=== PATIENT | female | born 1990 | race African-American/Black ===

== ENCOUNTER 2018-09-08 17:14 | Emergency (ER) | payer BC ==
[2018-09-08] MEDS ORDERED: KETOROLAC 30 MG/ML INJ ONE (21:03)
--- NOTE | 2018-09-08 22:17 | ER ---
Nurse's Notes [facility] Name: Brendan Alcala Age: 27 yrs Sex: Female : 1990 Arrival Date: 09/08/2018 Time: 17:33 Bed 7 Private MD: Diagnosis: Acute pharyngitis Presentation: 09/08 17:38 Presenting complaint: Patient states: painful cough and sore throat that began today. ss Transition of care: patient was not received from another setting of care. Onset of symptoms was September 08, 2018. Risk Assessment: Do you want to hurt yourself or someone else? Patient reports no desire to harm self or others. Initial Sepsis Screen: Does the patient meet any 2 criteria? No. Patient's initial sepsis screen is negative. Does the patient have a suspected source of infection? No. Patient's initial sepsis screen is negative. Care prior to arrival: None. 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 - Social history:: Smoking status: Patient uses tobacco products, smokes one-half pack cigarettes per day. - Ebola Screening: : Patient denies exposure to infectious person Patient denies travel to an Ebola-affected area in the 21 days before illness onset. Screenin:36 Abuse screen: Denies threats or abuse. Denies injuries from another. Nutritional ak1 screening: No deficits noted. Tuberculosis screening: No symptoms or risk factors identified. Fall Risk None identified. Assessment: 20:34 General: Appears in no apparent distress. Behavior is calm, cooperative. Pain: ak1 Complains of pain in throat Pain does not radiate. Pain began 1 week ago. Neuro: No deficits noted. Cardiovascular: No deficits noted. Respiratory: Airway is patent Respiratory effort is even, unlabored, Breath sounds are clear bilaterally. GI: No signs and/or symptoms were reported involving the gastrointestinal system. : No signs and/or symptoms were reported regarding the genitourinary system. EENT: Throat is clear. Derm: No signs and/or symptoms reported regarding the dermatologic system. Musculoskeletal: No signs and/or symptoms reported regarding the musculoskeletal system. 20:56 Reassessment: ER UPT negative. ak1 Vital Signs: 17:39 BP 101 / 67; Pulse 75; Resp 14; Temp 98.4(TE); Pulse Ox 100% on R/A; Weight 83.91 kg; ss Height 5 ft. 3 in. (160.02 cm); Pain 7/10; 20:16 BP 99 / 62; Pulse 82; Resp 16; Pulse Ox 100% on R/A; Pain 8/10; mt 20:36 BP 96 / 54; Pulse 66; Resp 18; Temp 98.6; Pulse Ox 100% on R/A; ak1 21:41 BP 90 / 57; Pulse 62; Resp 16; Pulse Ox 100% on R/A; ak1 17:39 Body Mass Index 32.77 (83.91 kg, 160.02 cm) ED Course: 17:33 Patient arrived in ED. mr 17:38 Triage completed. ss 17:39 Arm band placed on right wrist. 20:23 Kinga Hicks RN is Primary Nurse. ak1 20:30 Ingrid Wray FNP-C is PHCP. kb 20:30 Cirilo Kate MD is Attending Physician. kb 20:36 Patient has correct armband on for positive identification. Bed in low position. Call ak1 light in reach. Side rails up X 1. Pulse ox on. NIBP on. 20:36 No provider procedures requiring assistance completed. Patient maintains SpO2 ak1 saturation greater than 95% on room air. 20:49 Flu Sent. tl2 22:23 Patient did not have IV access during this emergency room visit. ak1 Administered Medications: 21:00 Drug: TORadol 60 mg Route: IM; Site: right deltoid; tl2 21:56 Follow up: Response: No adverse reaction ak1 Outcome: 22:16 Discharge ordered by . kb 22:23 Discharged to home ambulatory. ak1 22:23 Condition: good 22:23 Discharge instructions given to patient, Instructed on discharge instructions, follow up and referral plans. Demonstrated understanding of instructions, follow-up care. 22:23 Patient left the ED. ak1 Signatures: Ingrid Wray FNP-C FNP-Isac Zeinab Yee mr Arpita Franklin RN RN Kinga Hicks RN RN ak1 Jacquie Webster RN RN tl2 Delmy Luna mt
--- NOTE | 2018-09-08 22:18 | EDPHYS ---
Physician Documentation [facility] Name: Brendan Alcala Age: 27 yrs Sex: Female : 1990 Arrival Date: 09/08/2018 Time: 17:33 Bed 7 Private MD: ED Physician Cirilo Kate HPI: 09/08 22:17 This 27 yrs old Black Female presents to ER via Ambulatory with complaints of Sore kb Throat, Cough. 22:17 The patient presents with sore throat. The patient describes throat pain as constant. kb Onset: The symptoms/episode began/occurred last week, and became worse today. Severity of symptoms: At their worst the symptoms were moderate, in the emergency department the symptoms are unchanged. Modifying factors: The symptoms are alleviated by nothing, the symptoms are aggravated by swallowing, Patient's oral intake status: good. Associated signs and symptoms: Pertinent positives: chills, cough, fever, flu-like symptoms, Sore throat. The patient has not experienced similar symptoms in the past. The patient has not recently seen a physician. Pt reports flu-like symptoms for a week, sore throat started today. . 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 - Social history:: Smoking status: Patient uses tobacco products, smokes one-half pack cigarettes per day. - Ebola Screening: : Patient denies exposure to infectious person Patient denies travel to an Ebola-affected area in the 21 days before illness onset. ROS: 22:18 Constitutional: Negative for fever, chills, and weight loss, Cardiovascular: Negative kb for chest pain, palpitations, and edema, Abdomen/GI: Negative for abdominal pain, nausea, vomiting, diarrhea, and constipation, : Negative for injury, bleeding, discharge, and swelling, MS/Extremity: Negative for injury and deformity, Skin: Negative for injury, rash, and discoloration, Neuro: Negative for headache, weakness, numbness, tingling, and seizure. 22:18 ENT: Positive for sore throat. 22:18 Respiratory: Positive for cough, Negative for dyspnea on exertion, hemoptysis, orthopnea, pleurisy, shortness of breath, sputum production, wheezing. Exam: 22:19 Constitutional: This is a well developed, well nourished patient who is awake, alert, kb and in no acute distress. Head/Face: Normocephalic, atraumatic. ENT: Nares patent. No nasal discharge, no septal abnormalities noted. Tympanic membranes are normal and external auditory canals are clear. Oropharynx with no redness, swelling, or masses, exudates, or evidence of obstruction, uvula midline. Mucous membranes moist. Neck: Trachea midline, no thyromegaly or masses palpated, and no cervical lymphadenopathy. Supple, full range of motion without nuchal rigidity, or vertebral point tenderness. No Meningismus. Chest/axilla: Normal chest wall appearance and motion. Nontender with no deformity. No lesions are appreciated. Cardiovascular: Regular rate and rhythm with a normal S1 and S2. No gallops, murmurs, or rubs. Normal PMI, no JVD. No pulse deficits. Respiratory: Lungs have equal breath sounds bilaterally, clear to auscultation and percussion. No rales, rhonchi or wheezes noted. No increased work of breathing, no retractions or nasal flaring. Abdomen/GI: Soft, non-tender, with normal bowel sounds. No distension or tympany. No guarding or rebound. No evidence of tenderness throughout. Skin: Warm, dry with normal turgor. Normal color with no rashes, no lesions, and no evidence of cellulitis. MS/ Extremity: Pulses equal, no cyanosis. Neurovascular intact. Full, normal range of motion. Neuro: Awake and alert, GCS 15, oriented to person, place, time, and situation. Cranial nerves II-XII grossly intact. Motor strength 5/5 in all extremities. Sensory grossly intact. Cerebellar exam normal. Normal gait. Vital Signs: 17:39 BP 101 / 67; Pulse 75; Resp 14; Temp 98.4(TE); Pulse Ox 100% on R/A; Weight 83.91 kg; ss Height 5 ft. 3 in. (160.02 cm); Pain 7/10; 20:16 BP 99 / 62; Pulse 82; Resp 16; Pulse Ox 100% on R/A; Pain 8/10; mt 20:36 BP 96 / 54; Pulse 66; Resp 18; Temp 98.6; Pulse Ox 100% on R/A; ak1 21:41 BP 90 / 57; Pulse 62; Resp 16; Pulse Ox 100% on R/A; ak1 17:39 Body Mass Index 32.77 (83.91 kg, 160.02 cm) MDM: 20:30 Patient medically screened. kb 22:18 Data reviewed: vital signs, nurses notes. Data interpreted: Pulse oximetry: on room air kb is 100 %. Interpretation: normal. Counseling: I had a detailed discussion with the patient and/or guardian regarding: the historical points, exam findings, and any diagnostic results supporting the discharge/admit diagnosis, lab results, the need for outpatient follow up, a family practitioner, to return to the emergency department if symptoms worsen or persist or if there are any questions or concerns that arise at home. 09/08 19:15 Order name: Strep; Complete Time: 20:30 ea 09/08 19:46 Order name: Throat Culture [facility] 09/08 20:42 Order name: Flu; Complete Time: 21:35 kb Administered Medications: 21:00 Drug: TORadol 60 mg Route: IM; Site: right deltoid; tl2 21:56 Follow up: Response: No adverse reaction ak1 Disposition: 09/09 10:24 Co-signature as Attending Physician, Cirilo Kate MD I agree with the assessment and wa plan of care. Disposition: 09/08/18 22:16 Discharged to Home. Impression: Acute pharyngitis. - Condition is Stable. - Discharge Instructions: Pharyngitis, [id number], Viral Respiratory Infection, [id number], Sore Throat, [id number]. - Medication Reconciliation Form, Thank You Letter, Antibiotic Education, Prescription Opioid Use form. - Follow up: Emergency Department; When: As needed; Reason: Worsening of condition. Follow up: Private Physician; When: 2 - 3 days; Reason: Recheck today's complaints, Continuance of care, Re-evaluation by your physician. Signatures: Dispatcher [employer] [facility] Ingrid Wray FNP-C FNP-Ckb Smirch, Shelby, RN RN Kinga Hicks RN RN ak1 Jacquie Webster RN RN tl2 Cirilo Kate MD MD wa Corrections: (The following items were deleted from the chart) 09/08 22:23 22:16 09/08/2018 22:16 Discharged to Home. Impression: Acute pharyngitis. Condition is ak1 Stable. Forms are Medication Reconciliation Form, Thank You Letter, Antibiotic Education, Prescription Opioid Use. Follow up: Emergency Department; When: As needed; Reason: Worsening of condition. Follow up: Private Physician; When: 2 - 3 days; Reason: Recheck today's complaints, Continuance of care, Re-evaluation by your physician. kb
[2018-09-08 22:36] VITALS: BP 99/62; O2SAT 100
[2018-09-08 22:37] VITALS: TEMP 98.4
== END 2018-09-08 22:23 | disposition home or self-care (01) ==
LOC: ER 17:14
DX: J02.9 Acute pharyngitis, unspecified (principal); R05 Cough; Z88.8 Allergy status to other drugs, medicaments and biological substances; F17.210 Nicotine dependence, cigarettes, uncomplicated
CPT/HCPCS: 87070; 87081; 87804; 96372; 99284

== ENCOUNTER 2018-11-08 11:54 | Emergency (ER) | payer BC ==
[2018-11-08 13:09] LABS: Absolute Lymphocytes (CBC) 0.6 K/uL (0.7-4.9); Absolute Monocytes 0.5 K/uL (0.1-1.3); Absolute Neutrophil 2.8 K/uL (1.8-8.0); Basophils % 1.1 % (0-1.3); Eosinophils % 6.3 % (0-4.4); Hematocrit 39.6 % (36.0-45.0); Lymphocytes % 14.3 % (15.3-44.8); MPV 8.1 fL (7.6-11.3); Monocytes % 10.9 % (3.3-12.3); RBC Red Blood Cell Count 4.98 M/uL (3.86-4.86)
[2018-11-08 13:11] LABS: Urine Bacteria <20 /HPF (<20)
[2018-11-08 13:12] LABS: Urine Culture Reflex Order NOT NEEDED
[2018-11-08 13:22] LABS: BUN Blood Urea Nitrogen 7 mg/dL (7-18); Bicarbonate 27 mmol/L (21-32); Glucose Level 98 mg/dL (74-106); Potassium 3.5 mmol/L (3.5-5.1); Sodium Level 141 mmol/L (136-145)
--- NOTE | 2018-11-08 13:43 | ER ---
Nurse's Notes [facility] Name: Brendan Alcala Age: 27 yrs Sex: Female : 1990 Arrival Date: 11/08/2018 Time: 11:56 Bed 13 Private MD: Unknown, Unknown Diagnosis: Edema, unspecified;Adverse effect of unspecified systemic antibiotic-Bactrim Presentation: 11/08 11:58 Presenting complaint: Patient states: i was Rx with Bactrim and Clindamycin for in hj grown hair on the pubic area since Saturday and noticed my legs hurt and red and warm to touch; took benadryl but not helping;. Transition of care: patient was not received from another setting of care. Onset: The symptoms/episode began/occurred yesterday. Anaphylaxis evaluation, no signs or symptoms of anaphylaxis were noted. Onset of symptoms was November 08, 2018. Risk Assessment: Do you want to hurt yourself or someone else? Patient reports no desire to harm self or others. Initial Sepsis Screen: Does the patient meet any 2 criteria? No. Patient's initial sepsis screen is negative. Does the patient have a suspected source of infection? No. Patient's initial sepsis screen is negative. Care prior to arrival: None. 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 - Social history:: Smoking status: . - Ebola Screening: : Patient denies travel to an Ebola-affected area in the 21 days before illness onset. Screenin:28 Abuse screen: Denies threats or abuse. Nutritional screening: No deficits noted. tw2 Tuberculosis screening: No symptoms or risk factors identified. Fall Risk None identified. Assessment: 13:02 General: Appears in no apparent distress. Behavior is calm, cooperative, appropriate tw2 for age. Pain: Complains of pain in pelvis. Neuro: Level of Consciousness is awake, alert, obeys commands, Oriented to person, place, time, situation. Cardiovascular: Heart tones S1 S2 Patient's skin is warm and dry. Respiratory: Airway is patent Respiratory effort is even, unlabored, Respiratory pattern is regular, symmetrical, Breath sounds are clear bilaterally. GI: No signs and/or symptoms were reported involving the gastrointestinal system. Abdomen is flat, Bowel sounds present X 4 quads. : No signs and/or symptoms were reported regarding the genitourinary system. EENT: No signs and/or symptoms were reported regarding the EENT system. Derm: Reports abscess in my pubic hairs. Musculoskeletal: Circulation, motion, and sensation intact. Range of motion: intact in all extremities. 13:47 Reassessment: Patient appears in no apparent distress at this time. No changes from tw2 previously documented assessment. Patient and/or family updated on plan of care and expected duration. Pain level reassessed. Patient is alert, oriented x 3, equal unlabored respirations, skin warm/dry/pink. 14:43 Reassessment: Patient appears in no apparent distress at this time. No changes from tw2 previously documented assessment. Patient and/or family updated on plan of care and expected duration. Pain level reassessed. Patient is alert, oriented x 3, equal unlabored respirations, skin warm/dry/pink. 15:09 Reassessment: Patient appears in no apparent distress at this time. Patient and/or tw2 family updated on plan of care and expected duration. Pain level reassessed. Patient is alert, oriented x 3, equal unlabored respirations, skin warm/dry/pink. Patient states feeling better. Patient states symptoms have improved. Vital Signs: 12:01 BP 139 / 69; Pulse 86; Resp 18; Temp 98.7(O); Pulse Ox 100% on R/A; Weight 79.38 kg; hj Height 5 ft. 4 in. (162.56 cm); Pain 7/10; 13:47 BP 101 / 68; Pulse 62; Resp 17; Pulse Ox 100% on R/A; tw2 15:09 BP 101 / 64; Pulse 79; Resp 17; Pulse Ox 99% on R/A; tw2 12:01 Body Mass Index 30.04 (79.38 kg, 162.56 cm) ED Course: 11:56 Patient arrived in ED. ag5 11:57 Unknown, Unknown is Private Physician. ag5 12:01 Triage completed. 12:03 Arm band placed on right wrist. hj 12:10 Adeline Huynh [facility]-C [facility]. snw 12:10 Neymar Enamorado MD is Attending Physician. snw 12:14 Dea Her, RN is Primary Nurse. tw2 12:30 Placed in gown. Bed in low position. Call light in reach. tw2 12:50 Inserted saline lock: 22 gauge in right antecubital area, using aseptic technique. tw2 Blood collected. 13:02 Urine For Protein, Random Sent. tw2 13:55 Awaiting: Completion of IV fluids PRIOR to discharge. tw2 15:10 No provider procedures requiring assistance completed. Patient did not have IV access tw2 during this emergency room visit. Administered Medications: 13:54 Drug: NS 0.9% 1000 ml Route: IV; Rate: 1 bolus; Site: right antecubital; tw2 15:09 Follow up: Response: No adverse reaction; IV Status: Completed infusion; IV Intake: tw2 1000ml 13:54 Drug: TORadol 30 mg Route: IVP; Site: right antecubital; tw2 15:09 Follow up: Response: No adverse reaction; Pain is decreased tw2 Intake: 15:09 IV: 1000ml; Total: 1000ml. tw2 Outcome: 13:42 Discharge ordered by . snw 15:10 Discharged to home ambulatory. tw2 15:10 Condition: stable 15:10 Discharge instructions given to patient, Instructed on discharge instructions, follow up and referral plans. medication usage, Demonstrated understanding of instructions, follow-up care, medications, Prescriptions given X 1. 15:10 Patient left the ED. tw2 Signatures: Adeline Huynh FNP-C SURGERY AIDE-Csnw Anderson Neville, RN RN Dea Her, RN RN tw2 Roland Garcia ag5 Corrections: (The following items were deleted from the chart) 12:03 12:01 Pulse 86bpm; Resp 18bpm; Pulse Ox 100% RA; Temp 98.7F Oral; 79.38 kg; Height 5 hj ft. 4 in.; BMI: 30.0; Pain 7/10; hj
--- NOTE | 2018-11-08 13:43 | EDPHYS ---
Physician Documentation [facility] Name: Brendan Alcala Age: 27 yrs Sex: Female : 1990 Arrival Date: 11/08/2018 Time: 11:56 Bed 13 Private MD: Unknown, Unknown ED Physician Neymar Enamorado HPI: 11/08 13:08 This 27 yrs old Black Female presents to ER via Ambulatory with complaints of Allergic snw Reaction. 13:08 The patient presents with swelling and some redness to bilateral lower extremities. snw Onset: The symptoms/episode began/occurred suddenly, 2 day(s) ago, and became persistent today. Associated signs and symptoms: Pertinent positives: swelling. Possible causes: antibiotics, Bactrim. At home the patient or guardian has treated the symptoms with Benadryl. Severity of symptoms: At their worst the symptoms were moderate. The patient has not experienced similar symptoms in the past. 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 - Social history:: Smoking status: . - Ebola Screening: : Patient denies travel to an Ebola-affected area in the 21 days before illness onset. ROS: 13:07 Constitutional: Negative for fever, chills, and weight loss, Eyes: Negative for injury, snw pain, redness, and discharge, ENT: Negative for injury, pain, and discharge, Neck: Negative for injury, pain, and swelling, Cardiovascular: Negative for chest pain, palpitations, and edema, Respiratory: Negative for shortness of breath, cough, wheezing, and pleuritic chest pain, Abdomen/GI: Negative for abdominal pain, nausea, vomiting, diarrhea, and constipation, Back: Negative for injury and pain, : Negative for injury, bleeding, discharge, and swelling, Skin: Negative for injury, rash, and discoloration, Neuro: Negative for headache, weakness, numbness, tingling, and seizure. 13:07 MS/extremity: Positive for pain, swelling, tenderness, of the right leg and left leg. Exam: 13:07 Constitutional: This is a well developed, well nourished patient who is awake, alert, snw and in no acute distress. Head/Face: Normocephalic, atraumatic. Eyes: Pupils equal round and reactive to light, extra-ocular motions intact. Lids and lashes normal. Conjunctiva and sclera are non-icteric and not injected. Cornea within normal limits. Periorbital areas with no swelling, redness, or edema. ENT: Nares patent. No nasal discharge, no septal abnormalities noted. Tympanic membranes are normal and external auditory canals are clear. Oropharynx with no redness, swelling, or masses, exudates, or evidence of obstruction, uvula midline. Mucous membranes moist. Neck: Trachea midline, no thyromegaly or masses palpated, and no cervical lymphadenopathy. Supple, full range of motion without nuchal rigidity, or vertebral point tenderness. No Meningismus. Chest/axilla: Normal chest wall appearance and motion. Nontender with no deformity. No lesions are appreciated. Cardiovascular: Regular rate and rhythm with a normal S1 and S2. No gallops, murmurs, or rubs. Normal PMI, no JVD. No pulse deficits. Respiratory: Lungs have equal breath sounds bilaterally, clear to auscultation and percussion. No rales, rhonchi or wheezes noted. No increased work of breathing, no retractions or nasal flaring. Abdomen/GI: Soft, non-tender, with normal bowel sounds. No distension or tympany. No guarding or rebound. No evidence of tenderness throughout. Back: No spinal tenderness. No costovertebral tenderness. Full range of motion. Neuro: Awake and alert, GCS 15, oriented to person, place, time, and situation. Cranial nerves II-XII grossly intact. Motor strength 5/5 in all extremities. Sensory grossly intact. Cerebellar exam normal. Normal gait. Psych: Awake, alert, with orientation to person, place and time. Behavior, mood, and affect are within normal limits. 13:07 Skin: Appearance: normal except for affected area, swelling, that are moderate, tender, edematous lower extremities with mild erythema. Vital Signs: 12:01 BP 139 / 69; Pulse 86; Resp 18; Temp 98.7(O); Pulse Ox 100% on R/A; Weight 79.38 kg; hj Height 5 ft. 4 in. (162.56 cm); Pain 7/10; 13:47 BP 101 / 68; Pulse 62; Resp 17; Pulse Ox 100% on R/A; tw2 15:09 BP 101 / 64; Pulse 79; Resp 17; Pulse Ox 99% on R/A; tw2 12:01 Body Mass Index 30.04 (79.38 kg, 162.56 cm) hj MDM: 12:18 Patient medically screened. snw 13:40 Data reviewed: vital signs, nurses notes. Data interpreted: Pulse oximetry: on room air snw is 100 %. Interpretation: normal. Counseling: I had a detailed discussion with the patient and/or guardian regarding: the historical points, exam findings, and any diagnostic results supporting the discharge/admit diagnosis, the presence of at least one elevated blood pressure reading (>120/80) during this emergency department visit, lab results, the need for outpatient follow up, to return to the emergency department if symptoms worsen or persist or if there are any questions or concerns that arise at home. Special discussion: I have referred the patient to see his PCP for further evaluation of high blood pressure. Based on the history and exam findings, there is no indication for further emergent testing or inpatient evaluation. I discussed with the patient/guardian the need to see the primary care provider for further evaluation of the symptoms. 11/08 12:34 Order name: CBC with Diff [facility] 11/08 12:34 Order name: Chem 7 w 11/08 12:34 Order name: ESR [facility] 11/08 12:34 Order name: Urine Culture [facility] 11/08 12:34 Order name: Urine Microscopic Only; Complete Time: 13:14 [facility] 11/08 12:35 Order name: CBC with Automated Diff; Complete Time: 13:48 EDIN 11/08 12:34 Order name: Urine Test (obtain specimen); Complete Time: 13:01 snw 11/08 12:35 Order name: Basic Metabolic Panel; Complete Time: 13:26 EDMS 11/08 12:35 Order name: Sedimentation Rate, Westergren; Complete Time: 13:48 EDIN 11/08 12:38 Order name: Urine For Protein, Random; Complete Time: 13:35 snw 11/08 13:09 Order name: Urine Dipstick--Ancillary (enter results); Complete Time: 14:19 eb 11/08 13:09 Order name: Urine --Ancillary (enter results); Complete Time: 14:19 eb 11/08 12:34 Order name: Urine Dipstick-Ancillary (obtain specimen); Complete Time: 13:02 snw 11/08 12:34 Order name: SL; Complete Time: 13:02 snw Administered Medications: 13:54 Drug: NS 0.9% 1000 ml Route: IV; Rate: 1 bolus; Site: right antecubital; tw2 15:09 Follow up: Response: No adverse reaction; IV Status: Completed infusion; IV Intake: tw2 1000ml 13:54 Drug: TORadol 30 mg Route: IVP; Site: right antecubital; tw2 15:09 Follow up: Response: No adverse reaction; Pain is decreased tw2 Disposition: 15:14 Co-signature as Attending Physician, Neymar Enamorado MD. rn Disposition: 11/08/18 13:42 Discharged to Home. Impression: Edema, unspecified, Adverse effect of unspecified systemic antibiotic - Bactrim. - Condition is Stable. - Discharge Instructions: Dehydration, Adult, Edema, Rehydration, Adult. - Prescriptions for Mobic 7.5 mg Oral Tablet - take 1 tablet by ORAL route once daily take with food; 20 tablet. - Medication Reconciliation Form, Thank You Letter, Antibiotic Education, Prescription Opioid Use, Work release form form. - Follow up: Private Physician; When: 2 - 3 days; Reason: Recheck today's complaints, Continuance of care, Re-evaluation by your physician. Follow up: Emergency Department; When: As needed; Reason: Worsening of condition. - Notes: Please stop Bactrim Signatures: Dispatcher [employer] EDMS Adeline Huynh, ANTONIO-C B[employer]K DELIVERY DRIVER-Csnw Neymar Enamorado MD MD rn Joaquin, Henry, RN RN hj Wise, Tara, RN RN tw2 Corrections: (The following items were deleted from the chart) 15:10 13:42 11/08/2018 13:42 Discharged to Home. Impression: Edema, unspecified; Adverse tw2 effect of unspecified systemic antibiotic - Bactrim. Condition is Stable. Forms are Medication Reconciliation Form, Thank You Letter, Antibiotic Education, Prescription Opioid Use. Follow up: Private Physician; When: 2 - 3 days; Reason: Recheck today's complaints, Continuance of care, Re-evaluation by your physician. Follow up: Emergency Department; When: As needed; Reason: Worsening of condition. snw
[2018-11-08] MEDS ORDERED: NA CHLORIDE 0.9% 1,000 ML ONE (14:02)
[2018-11-08] MEDS ORDERED: KETOROLAC 30 MG/ML INJ ONE (14:02)
[2018-11-08 14:17] LABS: Urine Blood 3+ (NEG); Urine Glucose NEGATIVE (NEG); Urine Protein NEGATIVE (NEG); Urine Specific Gravity 1.015 (1.005-1.030); Urine pH 6.5 (5.0-7.0)
[2018-11-08 15:48] VITALS: TEMP 98.7
[2018-11-08 15:50] VITALS: BP 101/64; O2SAT 99
== END 2018-11-08 15:10 | disposition home or self-care (01) ==
LOC: ER 11:54
DX: R60.0 Localized edema (principal); T36.8X5A Adverse effect of other systemic antibiotics, initial encounter; Z88.6 Allergy status to analgesic agent; Z88.8 Allergy status to other drugs, medicaments and biological substances
CPT/HCPCS: 36415; 80048; 81003; 81015; 81025; 84156; 85025; 85652; 87086; 87088; 96361; 96374; 99284; J7030